=== PATIENT | female | born 1970 | race Caucasian/White ===

== ENCOUNTER 2018-02-22 18:09 | Emergency (ER) | payer OTHER ==
[~2018-02-22] VITALS: Ht 157.5 cm; Wt 80.0 kg
[~2018-02-22 18:09] MED LIST: GLIM4TAB PO; GLUCTAB OR; LORT5TAB PO; PRIL10CA PO; PROM25SU8 PO
[2018-02-22] MEDS ORDERED: IOHEXOL 350 MG/ML 10 ML VIAL (for RAD DIAG) IVCONTRAST ONE (18:10)
[2018-02-22 18:22] VITALS: BP 113/67; PULSE 101; RESP 20; TEMP 98.4; O2SAT 98
[2018-02-22] MEDS ORDERED: ORPHENADRINE INJ 60 MG/2 ML AMP IV ONE (19:45)
[2018-02-22] MEDS ORDERED: MORPHINE SULFATE 2 MG/ML SYRINGE IV PUSH ONE (19:45)
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
[2018-02-22 20:08] VITALS: BP 111/70; PULSE 84; RESP 18; O2SAT 100
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
[2018-02-22 20:54] LABS: AUTOMATED NEUTROPHIL # 3.9 TH/MM3 (1.8-7.7); BASOPHIL # 0.1 TH/MM3 (0-0.2); BASOPHIL % 1.1 % (0.0-2.0); EOSINOPHIL # 0.3 TH/MM3 (0-0.4); EOSINOPHIL % 3.4 % (0.0-4.0); HEMATOCRIT 40.6 % (35.0-46.0); HEMOGLOBIN 13.8 GM/DL (11.6-15.3); LYMPH % 36.7 % (9.0-44.0); LYMPHOCYTE # 2.7 TH/MM3 (1.0-4.8); MEAN CELL VOLUME 83.5 FL (80.0-100.0); MEAN CORPUSCULAR HEMOGLOBIN 28.4 PG (27.0-34.0); MEAN CORPUSCULAR HGB CONC 34.1 % (32.0-36.0); MONO % 6.4 % (0.0-8.0); MONOCYTE # 0.5 TH/MM3 (0-0.9); NEUT % 52.4 % (16.0-70.0); PLATELET COUNT 242 TH/MM3 (150-450); RED BLOOD COUNT 4.87 MIL/MM3 (4.00-5.30); WHITE BLOOD COUNT 7.5 TH/MM3 (4.0-11.0)
[2018-02-22 21:12] LABS: BICARBONATE 23.7 MEQ/L (21.0-32.0); CALCIUM 8.9 MG/DL (8.5-10.1); CREATININE 0.66 MG/DL (0.50-1.00)
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
[2018-02-22] MEDS ORDERED: IBUP1TAB7 PO (23:04)
[2018-02-22] MEDS ORDERED: CYCL10TA PO (23:04)
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
== END 2018-02-22 23:20 | disposition home or self-care (01) ==
LOC: NEPD 18:09
DX: M79.1 Myalgia (principal); R10.84 Generalized abdominal pain; E11.9 Type 2 diabetes mellitus without complications; Z79.84 Long term (current) use of oral hypoglycemic drugs
CPT/HCPCS: 72100; 74177; 80048; 85025; 96374; 99285; J2360; Q9967